=== PATIENT | male | born 1940 | race Caucasian/White ===

== ENCOUNTER 2019-12-09 12:57 | Inpatient (IN) | payer MEDICARE ==
[~2019-12-09] VITALS: Ht 170.2 cm; Wt 113.4 kg
[2019-12-09 14:04] LABS: BASOPHILS % 0.4 % (0.0-1.0); EOSINOPHILS # (AUTO) 0.2 (0.0-0.4); EOSINOPHILS % 2.7 % (0.0-6.0); HEMATOCRIT 35.8 % (38.2-49.6); LYMPHOCYTES # (AUTO) 1.4 (1.0-3.2); MEAN CORPUSCULAR HEMOGLOBIN 32.4 pg (28-32); MEAN CORPUSCULAR HGB CONC 33.5 g/dL (31-35); MEAN CORPUSCULAR VOLUME 96.8 fL (81-99); MONOCYTES # (AUTO) 0.6 (0.2-0.8); MONOCYTES % 7.9 % (4.4-11.3); NEUTROPHILS # (AUTO) 4.8 (2.1-6.9); NEUTROPHILS % 68.7 % (38.7-80.0); PLATELET COUNT 210 x10e3/uL (140-360); RED CELL DISTRIBUTION WIDTH 13.2 % (11.7-14.4)
[2019-12-09 14:12] LABS: COLOR,URINE YELLOW (YELLOW)
[2019-12-09 14:13] LABS: BACTERIA,URINE RARE /HPF; BILIRUBIN,URINE NEGATIVE (NEGATIVE); CLARITY,URINE CLEAR (CLEAR); EPITHELIAL CELLS,URINE FEW /LPF; KETONES,URINE NEGATIVE (NEGATIVE); LEUKOCYTE ESTERASE ,URINE SMALL (NEGATIVE); NITRITE,URINE NEGATIVE (NEGATIVE); PROTEIN,URINE DIPSTICK NEGATIVE (NEGATIVE); RBC,URINE 0-5 /HPF (0-5); URINE UROBILINOGEN 0.2 mg/dL (0.2 - 1); WBC,URINE (MAN) 0-5 /HPF (0-5)
[2019-12-09 14:25] LABS: ALBUMIN 3.1 g/dL (3.5-5.0); ALBUMIN/GLOBULIN RATIO 1.1 (0.8-2.0); ANION GAP 11.7 mmol/L (8-16); CALCIUM 9.4 mg/dL (8.4-10.2); CREATININE, SERUM 2.01 mg/dL (0.72-1.25); POTASSIUM 4.7 mmol/L (3.5-5.1)
--- NOTE | 2019-12-09 15:12 | Diagnostic Imaging Report ---
CT Abdomen and Pelvis without contrast INDICATION: Left lower quadrant pain ^abd pain lq ^[id number] ^[id number] TECHNIQUE: Thin collimation axial images obtained from the diaphragm to the level of the pubic symphysis without nonionic intravenous contrast. Dose reduction techniques used: Automated exposure control, adjustment of the mAs and/or kVp according to patient size, standardized low-dose protocol, and/or iterative reconstruction technique. RADIATION DOSE: Total DLP: 876.6 mGy*cm Estimated effective dose: (DLP x 0.015 x size factor) mSv CTDIvol has been reviewed. It is below the limits set by the Radiation Protocol Committee (RPC). COMPARISON: None. ABDOMEN FINDINGS: Lung Bases: The heart is enlarged. Subpleural fat deposition in the posterior left chest. The lungs are clear. Small hiatal hernia. Liver: Normal in attenuation without mass. Gallbladder: Present and contains dependently layering gallstones measuring up to 10 mm.. No ductal dilatation. Pancreas: Normal attenuation without mass. Spleen: Normal size without mass. Adrenal Glands: Nodular thickening of the right adrenal gland. Diffuse thickening of the left adrenal gland. Kidneys: Right: No renal calculus. Exophytic cyst in the lower pole measures 10 cm. Mass in the anterior interpolar region measures 3.5 x 4.0 cm and does not appear to be a simple cyst. No hydronephrosis Left: No renal calculus. Lower pole cyst measures 3.3 x 2.6 cm. No hydronephrosis. Lymph Nodes: No enlarged abdominal or periaortic lymph nodes. Aorta: Diffusely calcified. No aneurysm dilatation. Common iliac arteries are mildly tortuous PELVIS FINDINGS: Bowel: Stomach: Normal. Small Bowel: Normal in caliber with normal wall thickness. Large Bowel: Normal in caliber with normal wall thickness. Epiploic appendage adjacent to the descending colon measures 2.3 cm. No associated inflammation Appendix: Not visualized. Bladder: Normal. Prostate: Mildly enlarged with calcifications throughout Ureters: No ureteral dilatation or calculus. Peritoneum/retroperitoneum: No free fluid or fluid collection. Bones: Degenerative changes of the spine, particularly the lower thoracic and upper lumbar spine. No compression deformities. Grade 1 retrolisthesis of T12 on L1 without pars defects. Soft tissues: Fat-containing of focal hernia has an aperture of 21 mm. No fluid or inflammation in the hernia sac. 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 IMPRESSION: 1. No evidence of renal calculus or obstructive uropathy. 2. Bilateral renal cysts. Mass in the right kidney does not have the CT appearance of a simple cyst. Recommend further evaluation with renal ultrasound to confirm cystic contents. 3. No evidence for bowel obstruction or inflammation. 4. Cholelithiasis. No bile duct dilatation. 5. Bilateral adrenal hyperplasia. Signed by: Dr. Melvin Nicholson MD on 12/09/2019 3:10 PM
[2019-12-09] MEDS ORDERED: SODIUM CHLORIDE FLUSH 10 ML SYR INJ PRN (17:00)
[2019-12-09] MEDS ORDERED: LACTULOSE SYRUP 20 GM/30 ML UDC PO PRN (17:00)
[2019-12-09] MEDS ORDERED: ONDANSETRON HCL INJ 2MG/ML 2ML 2 MG/ML VIAL IV PRN (17:00)
--- OUTSIDE RECORDS SUMMARY | 2019-12-09 17:06 | XMS REPORT ---
Author Author [facility] Address Unknown Phone Unavailable Care Team Providers Care Bowling Or Skating Front Desk Clerk Name Role Phone Joss DUNCAN Unavailable Unavailable SABRINA FERREIRA Unavailable Unavailable ADITHYA, WILL Unavailable Unavailable SERGE MOORE Unavailable Unavailable Problems This patient has no known problems. Allergies, Adverse Reactions, Alerts This patient has no known allergies or adverse reactions. Medications This patient has no known medications. Results Test Description Test Time Test Comments Text Results Atomic Results Result Comments CT ABDOMEN/PELVIS WO 2019-12-09 15:03:00 [place] [address] Patient Name: TEENA CASAS MR #: [id number] : 1940 Age/Sex: 79/M Req #: [id number] Adm Physician: Ordered by: QIANA DUNCAN MD Report #: [id number] Location: ER Room/Bed: Procedure: [id number] CT/CT ABDOMEN/PELVIS WO Exam Date: 12/09/19 Exam Time: 1420 REPORT STATUS: Signed CT Abdomen and Pelvis without contrast INDICATION: Left lower quadrant pain abd pain lq [id number] TECHNIQUE: Thin collimation axial images obtained from the diaphragm to the level of the pubic symphysis without nonionic intravenous contrast. Dose reduction techniques used: Automated exposure control, adjustment of the mAs and/or kVp according to patient size, standardized low-dose protocol, and/or iterative reconstruction technique. RADIATION DOSE: Total DLP: 876.6 mGy*cm Estimated effective dose: (DLP x 0.015 x size factor) mSv CTDIvol has been reviewed. It is below the limits set by the Radiation Protocol Committee (RPC). COMPARISON: None. ABDOMEN FINDINGS: Lung Bases: The heart is enlarged. Subpleural fat deposition in the posterior left chest. The lungs are clear. Small hiatal hernia. Liver: Normal in attenuation without mass. Gallbladder: Present and contains dependently layering gallstones measuring up to 10 mm.. No ductal dilatation. Pancreas: Normal attenuation without mass. Spleen: Normal size without mass. Adrenal Glands: Nodular thickening of the right adrenal gland. Diffuse thickening of the left adrenal gland. Kidneys: Right: No renal calculus. Exophytic cyst in the lower pole measures 10 cm. Mass in the anterior interpolar region measures 3.5 x 4.0 cm and does not appear to be a simple cyst. No hydronephrosis Left: No renal calculus. Lower pole cyst measures 3.3 x 2.6 cm. No hydronephrosis. Lymph Nodes: No enlarged abdominal or periaortic lymph nodes. Aorta: Diffusely calcified. No aneurysm dilatation. Common iliac arteries are mildly tortuous PELVIS FINDINGS: Bowel: Stomach: Normal. Small Bowel: Normal in caliber with normal wall thickness. Large Bowel: Normal in caliber with normal wall thickness. Epiploic appendage adjacent to the descending colon measures 2.3 cm. No associated inflammation Appendix: Not visualized. Bladder: Normal. Prostate: Mildly enlarged with calcifications throughout Ureters: No ureteral dilatation or calculus. Peritoneum/retroperitoneum: No free fluid or fluid collection. Bones: Degenerative changes of the spine, particularly the lower thoracic and upper lumbar spine. No compression deformities. Grade 1 retrolisthesis of T12 on L1 without pars defects. Soft tissues: Fat-containing of focal hernia has an aperture of 21 mm. No fluid or inflammation in the hernia sac. 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 IMPRESSION: 1. No evidence of renal calculus or obstructive uropathy. 2. Bilateral renal cysts. Mass in the right kidney does not have the CT appearance of a simple cyst. Recommend further evaluation with renal ultrasound to confirm cystic con tents. 3. No evidence for bowel obstruction or inflammation. 4. Cholelithiasis. No bile duct dilatation. 5. Bilateral adrenal hyperplasia. Signed by: Dr. Ozzie Nicholson MD on 12/09/2019 3:10 PM Dictated By: OZZIE NICHOLSON MD 1510 Transcribed By: HARIS on 12/09/19 1510 COPY TO: QIANA DUNCAN MD CT, BRAIN, WITHOUT CONTRAST 2018-12-24 11:22:00 Reason for exam:->FALLReason for exam:->HEAD INJURYReason for exam:->ELBOW INJURYWhat is the patient's sedation requirement?->No Sedation FINAL REPORT CT, BRAIN, WITHOUT CONTRAST INDICATION: Head trauma, headacheFALLHEAD INJURYELBOW INJURY TECHNIQUE: Noncontrast axial imaging was obtained from the vertex to the skull base. Axial images were reconstructed using a bone algorithm. DOSE REDUCTION: Dose modulation, iterative reconstruction, and/or weight-based adjustment of the mA/kV was utilized to reduce the radiation dose to as low as reasonably achievable. COMPARISON: October 19, 2016 FINDINGS: Cerebral parenchyma: Diffuse parenchymal volume loss. Appearance of the white matter suggests chronic microvascular disease.Midline structures: Normally positioned.Cerebellum and brainstem: Commensurate volume loss.Ventricles: Normal volume.Extra-axial spaces: Unremarkable. Calvarium and skull base: Intact.Paranasal sinuses and mastoid air cells: Visible chambers are clear.Orbital contents: Included portions unremarkable. Additional findings: Superficial hematoma over the right parietal convexity posteriorly IMPRESSION: Chronic involutional changes without acute or traumatic intracranial abnormality. Signed: JR [place], [facility] Verified Date/Time: 12/24/2018 11:22:51 Reading Location: [facility] C013V Neuro Reading Room , ELBOW, 3 VIEWS, RIGHT 2018-12-24 11:03:00 Reason for exam:->elbow injuryReason for exam:->HEAD INJURYReason for exam:->ELBOW INJURY FINAL REPORT RAD, ELBOW, 3 VIEWS, RIGHT CLINICAL INDICATION: elbow injuryHEAD INJURYELBOW INJURY COMPARISON: None FINDINGS: AP, lateral and oblique radiographs of the right elbow. IMPRESSION: Fracture: NoneAlignment: Preserved radiocapitellar and ulnotrochlear joints.Derangement: Advanced degenerative changes and joint space narrowing.Soft tissue structures: Unremarkable. Signed: JR Peter Robert MDReport Verified Date/Time: 12/24/2018 11:03:44 Reading Location: [facility] C013V Neuro Reading Room D CULTURE 2018-10-24 07:01:00 CULTURE (BEAKER) (test xdha=4386) No growth in 5 days BLOOD [id number] 07:01:00* Test Item Value Reference Range Comments CULTURE (BEAKER) (test vxvp=3507) No growth in 5 days POCT-GLUCOSE [id number] 09:19:00* Test Item Value Reference Range Comments POC-GLUCOSE METER (BEAKER) (test gsxl=8155) 146 mg/dL 70-110 TESTED AT [address] [address] URINE [id number] 09:11:00* Test Item Value Reference Range Comments CULTURE (BEAKER) (test xplj=7451) <10,000 col/mL skin ken POCT-GLUCOSE [id number] 17:33:00* Test Item Value Reference Range Comments POC-GLUCOSE METER (BEAKER) (test oias=7133) 265 mg/dL 70-110 TESTED AT [address] [address] VENOUS DOPPLER LEGS, [id number] 12:55:00Reason for exam:->EdemaFINAL REPORT History: bilateral lower extremity edema Com parison: None Discussion: Grayscale, color Doppler, spectral wave form analysis of the deep venous system of the bilateral lower extremities was performed. The common femoral, femoral, and popliteal veins are normally compressible and demo nstrate normal spontaneous phasic wave forms.The visualized calf veins are paten t. Impression: No evidence of deep venous thrombus in the bilateral lower extrem ities. Signed: Jerman Hammond MDReport Verified Date/Time: 10/20/2018 12:55:03 Withams ding Location: [facility] Radiology Reading Room -GLUCOSE [id number] 11:16:00* Test Item Value Reference Range Comments POC-GLUCOSE METER (BEAKER) (test rlqx=3552) 206 mg/dL 70-110 TESTED AT [facility] [address] [facility] [address] POCT-GLUCOSE [id number] 07:49:00* Test Item Value Reference Range Comments POC-GLUCOSE METER (BEAKER) (test mydz=7397) 202 mg/dL 70-110 TESTED AT [facility] [address] [facility] [address] BASIC METABOLIC [id number] 06:46:00* Test Item Value Reference Range Comments SODIUM (BEAKER) (test jqxu=237) 134 meq/L 135-148 POTASSIUM (BEAKER) (test afmx=305) 3.8 meq/L 3.6-5.5 CHLORIDE (BEAKER) (test yfdd=514) 96 meq/L 98-106 CO2 (BEAKER) (test gdyd=609) 28 meq/L 20-29 BLOOD UREA NITROGEN (BEAKER) (test rzyf=694) 65 mg/dL 10-26 CREATININE (BEAKER) (test ltkg=830) 1.50 mg/dL 0.50-1.20 GLUCOSE RANDOM (BEAKER) (test hpsn=657) 150 mg/dL 70-110 CALCIUM (BEAKER) (test zast=966) 8.8 mg/dL 8.5-10.5 EGFR (BEAKER) (test tozh=5893) 46 mL/min/1.73 sq m ESTIMATED GFR IS NOT ACCURATE CREATININE CLEARANCE IN PREDICTING GLOMERULAR FILTRATION RATE. ESTIMATED GFR IS NOT APPLICABLE FOR DIALYSIS PATIENTS. CBC W/PLT COUNT & AUTO [id number] 06:19:00* Test Item Value Reference Range Comments WHITE BLOOD CELL COUNT (BEAKER) (test zoba=597) 11.9 K/ L 4.0-10.0 RED BLOOD CELL COUNT (BEAKER) (test syea=443) 3.44 M/ L 4.20-5.80 HEMOGLOBIN (BEAKER) (test wfsm=657) 10.0 GM/DL 13.0-16.8 HEMATOCRIT (BEAKER) (test lkqe=185) 30.6 % 36.0-50.0 MEAN CORPUSCULAR VOLUME (BEAKER) (test htfd=425) 89.0 fL 82.0-99.0 MEAN CORPUSCULAR HEMOGLOBIN (BEAKER) (test ofkd=746) 29.1 pg 27.0-33.0 MEAN CORPUSCULAR HEMOGLOBIN CONC (BEAKER) (test amxi=251) 32.7 GM/DL 32.0-36.0 RED CELL DISTRIBUTION WIDTH (BEAKER) (test uakl=694) 13.4 % 12.0-15.0 PLATELET COUNT (BEAKER) (test qlwl=440) 239 K/CU MM 150-430 MEAN PLATELET VOLUME (BEAKER) (test vyql=138) 10.2 fL 6.0-11.5 NUCLEATED RED BLOOD CELLS (BEAKER) (test xpkj=555) 0 /100 WBC 0-0 NEUTROPHILS RELATIVE PERCENT (BEAKER) (test efnj=362) 87 % LYMPHOCYTES RELATIVE PERCENT (BEAKER) (test nqif=150) 8 % MONOCYTES RELATIVE PERCENT (BEAKER) (test oudz=741) 4 % EOSINOPHILS RELATIVE PERCENT (BEAKER) (test xbsj=816) 0 % BASOPHILS RELATIVE PERCENT (BEAKER) (test ndap=518) 0 % NEUTROPHILS ABSOLUTE COUNT (BEAKER) (test ljbg=209) 10.36 K/ L 1.80-8.00 LYMPHOCYTES ABSOLUTE COUNT (BEAKER) (test czub=670) 1.00 K/ L 1.48-4.50 MONOCYTES ABSOLUTE COUNT (BEAKER) (test xpns=761) 0.45 K/ L 0.00-1.30 EOSINOPHILS ABSOLUTE COUNT (BEAKER) (test fwzj=436) 0.00 K/ L 0.00-0.50 BASOPHILS ABSOLUTE COUNT (BEAKER) (test rccr=294) 0.00 K/ L 0.00-0.20 IMMATURE GRANULOCYTES-RELATIVE PERCENT (BEAKER) (test qgxb=3229) 1 % 0-0 POCT-GLUCOSE [id number] 21:43:00* Test Item Value Reference Range Comments POC-GLUCOSE METER (BEAKER) (test jzpc=8219) 225 mg/dL 70-110 TESTED AT [facility] [address] [place] [address] URINALYSIS W/ [id number] 18:22:00* Test Item Value Reference Range Comments COLOR (BEAKER) (test zpvt=972) Yellow CLARITY (BEAKER) (test lavg=253) Slightly Cloudy SPECIFIC GRAVITY UA (BEAKER) (test futt=598) 1.015 1.001-1.035 PH UA (BEAKER) (test pzkn=848) 5.5 5.0-8.0 PROTEIN UA (BEAKER) (test hvvs=017) Negative Negative GLUCOSE UA (BEAKER) (test pmxf=620) Negative Negative KETONES UA (BEAKER) (test kxfu=124) Negative Negative BILIRUBIN UA (BEAKER) (test efax=008) Negative Negative BLOOD UA (BEAKER) (test sogz=417) Large Negative NITRITE UA (BEAKER) (test chpq=785) Negative Negative LEUKOCYTE ESTERASE UA (BEAKER) (test oknt=601) Moderate Negative UROBILINOGEN UA (BEAKER) (test zdiv=746) 0.2 mg/dL 0.2-1.0 BACTERIA (BEAKER) (test votc=925) Occasional RBC UA-MANUAL (BEAKER) (test dsnf=9691) >100 /HPF WBC UA-MANUAL (BEAKER) (test lyrp=5091) 10-20 /HPF SQUAMOUS EPITHELIAL MANUAL (BEAKER) (test osla=2107) <5 /HPF SOURCE(BEAKER) (test rthm=3975) COMPREHENSIVE METABOLIC [id number] 17:38:00* Test Item Value Reference Range Comments TOTAL PROTEIN (BEAKER) (test gdqd=775) 6.4 gm/dL 6.0-8.5 ALBUMIN (BEAKER) (test domy=9300) 3.2 g/dL 3.5-5.0 ALKALINE PHOSPHATASE (BEAKER) (test hyys=159) 70 U/L 30-115 BILIRUBIN TOTAL (BEAKER) (test liha=792) 0.9 mg/dL 0.1-1.2 SODIUM (BEAKER) (test hiyd=630) 134 meq/L 135-148 POTASSIUM (BEAKER) (test tbbq=752) 4.1 meq/L 3.6-5.5 CHLORIDE (BEAKER) (test grdk=833) 96 meq/L 98-106 CO2 (BEAKER) (test lsxr=970) 26 meq/L 20-29 BLOOD UREA NITROGEN (BEAKER) (test egfc=203) 56 mg/dL 10-26 CREATININE (BEAKER) (test eqsp=046) 1.57 mg/dL 0.50-1.20 GLUCOSE RANDOM (BEAKER) (test ctry=679) 165 mg/dL 70-110 CALCIUM (BEAKER) (test aoxw=460) 9.2 mg/dL 8.5-10.5 AST (SGOT) (BEAKER) (test bkya=417) 17 U/L 5-40 ALT (SGPT) (BEAKER) (test tjia=335) 12 U/L 5-50 EGFR (BEAKER) (test qnpg=4508) 43 mL/min/1.73 sq m ESTIMATED GFR IS NOT ACCURATE CREATININE CLEARANCE IN PREDICTING GLOMERULAR FILTRATION RATE. ESTIMATED GFR IS NOT APPLICABLE FOR DIALYSIS PATIENTS. CBC W/PLT COUNT & AUTO [id number] 17:17:00* Test Item Value Reference Range Comments WHITE BLOOD CELL COUNT (BEAKER) (test ehdz=778) 9.2 K/ L 4.0-10.0 RED BLOOD CELL COUNT (BEAKER) (test lvup=681) 4.03 M/ L 4.20-5.80 HEMOGLOBIN (BEAKER) (test bfyi=165) 11.8 GM/DL 13.0-16.8 HEMATOCRIT (BEAKER) (test qcwz=328) 35.4 % 36.0-50.0 MEAN CORPUSCULAR VOLUME (BEAKER) (test skme=543) 87.8 fL 82.0-99.0 MEAN CORPUSCULAR HEMOGLOBIN (BEAKER) (test xrzn=013) 29.3 pg 27.0-33.0 MEAN CORPUSCULAR HEMOGLOBIN CONC (BEAKER) (test trex=576) 33.3 GM/DL 32.0-36.0 RED CELL DISTRIBUTION WIDTH (BEAKER) (test omjr=209) 13.2 % 12.0-15.0 PLATELET COUNT (BEAKER) (test luyw=191) 228 K/CU MM 150-430 MEAN PLATELET VOLUME (BEAKER) (test jmvx=373) 9.2 fL 6.0-11.5 NUCLEATED RED BLOOD CELLS (BEAKER) (test mbzg=054) 0 /100 WBC 0-0 NEUTROPHILS RELATIVE PERCENT (BEAKER) (test secn=813) 88 % LYMPHOCYTES RELATIVE PERCENT (BEAKER) (test jlod=312) 8 % MONOCYTES RELATIVE PERCENT (BEAKER) (test zkdy=987) 4 % EOSINOPHILS RELATIVE PERCENT (BEAKER) (test vgcy=879) 0 % BASOPHILS RELATIVE PERCENT (BEAKER) (test jkcv=069) 0 % NEUTROPHILS ABSOLUTE COUNT (BEAKER) (test oatu=334) 8.09 K/ L 1.80-8.00 LYMPHOCYTES ABSOLUTE COUNT (BEAKER) (test lztm=420) 0.72 K/ L 1.48-4.50 MONOCYTES ABSOLUTE COUNT (BEAKER) (test wsmf=719) 0.37 K/ L 0.00-1.30 EOSINOPHILS ABSOLUTE COUNT (BEAKER) (test aewg=894) 0.00 K/ L 0.00-0.50 BASOPHILS ABSOLUTE COUNT (BEAKER) (test fbod=435) 0.00 K/ L 0.00-0.20 IMMATURE GRANULOCYTES-RELATIVE PERCENT (BEAKER) (test wbhc=8326) 0 % 0-0 CT, [id number] 04:55:00Reason for exam:->abd painWhat is the patient's sedation requirement?->No SedationFINAL REPORT CT, ABDOMEN \T\ PELVIS, WITHOUT IV CONTRAST INDICATION: Abdominal pain, unspecifiedabd pain COMPARISON: CT abdomen and pelvis dated 09/27/2018. TECHNIQUE:Noncontrast abdomen and pelvis CT. Coronal and sagittal reformatted images obtained. DOSE REDUCTION: Dose modulation, iterative reconstruction, and/or weight-based adjustment of the mA/kV was utilized to reduce the radiation dose to as low as reasonably achievable. FINDINGS: Lower thorax: Visible airspaces clear. No pleural effusion. The heart is globally enlarged. No pericardial effusion. Liver: Lack of intravenous contrast material limits connie luation for suspicious hepatic lesions however no discrete lesions are identifie d.Gallbladder and biliary tree: Cholelithiasis. The gallbladder is not distended . No pericholecystic fluid or abnormal gallbladder wall thickening. No intra or extrahepatic biliary ductal dilatation.Pancreas: No acute findings.Spleen: Splee n measures the upper limits of normal.Adrenal Glands: NormalKidneys and ureters: Multiple right exophytic simple cysts the largest of which is in the lower pole measuring 8.5 cm . Subcentimeter left renal hypodensities are too small to daniel acterize however statistically represents simple renal cysts. No nephrolithiasis or hydronephrosis.Bladder and reproductive organs: The bladder is unremarkable. Coarse calcifications within the prostate gland. Stomach and Duodenum: No signi ficant findings.Small and large intestine: Small and large bowel are normal in c aliber. No abnormal bowel wall thickening.Appendix: Normal. Major vascular struc tures: Atherosclerotic calcifications in the normal caliber abdominal aorta.Krystin toneum and retroperitoneum: No free air, fluid or adenopathy. Unchanged simple f at-containing nodular densities around the sigmoid colon, likely sequela of prio r epiploic appendagitis.Skeleton: Multilevel degenerative changes within the vis ualized thoracic lumbar spine, worst at T10-11 and L1-L2, unchanged.Additional f indings: Fat-containing umbilical hernia. IMPRESSION: No acute abnormality in t he abdomen or pelvis. Specifically no evidence diverticulitis, appendicitis or n ephrolithiasis. Cholelithiasis without evidence of acute cholecystitis. Signed: Kamlesh Singh Verified Date/Time: 10/19/2018 04:55:47 Reading Lo cation: [address] Transitional Reading Room , CHEST, 1 VIEW, NON DEPT 2018-10-19 02:55:00Reason for exam:->FEVER Reason for exam:->LEG PAINFINAL REPORT Chest, 1 view. History: Fever and leg pain. Comparison: Radiograph Chest dated 09/27/2018.. IMPRESSION: Unchanged borderli ne enlarged cardiac mediastinal silhouette. Unchanged bandlike opacities in the right perihilar and lower lung favored to represent prominent pulmonary vasculat ure and atelectasis. No lobar consolidation. No pleural effusion or pneumothorax . Degenerative changes of the right glenohumeral joint. Otherwise osseous struct ures are unremarkable. Signed: Kamlesh Singh Verified Date/Time: 10/19/2018 02:55:20 Reading Location: [address] Transitional Reading Room E lectronically signed by: KAMLESH SINGH MD on 10/19/2018 02:55 AM B- TYPE NATRIURETIC FACTOR (BNP)2018-10-19 02:50:00* Test Item Value Reference Range Comments B-TYPE NATRIURETIC PEPTIDE (BEAKER) (test esel=161) 108 pg/mL 0-100 TROPONIN [id number] 02:49:00* Test Item Value Reference Range Comments TROPONIN I (BEAKER) (test nqlk=888) 0.03 ng/mL 0.00-0.15 Troponin I (TnI) levels must be interpreted in the context of the presenting sym ptoms and the clinical findings. Elevated TnI levels indicate myocardial damage, but are not specific for ischemic heart disease. Elevated TnI levels are seen in patients with other cardiac conditions (including myocarditis and congestive h eart failure), and slight TnI elevations occur in patients with other conditions , including sepsis, renal failure, acidosis, acute neurological disease, and per sistent tachyarrhythmia.URIC [id number] 02:45:00* Test Item Value Reference Range Comments URIC ACID (BEAKER) (test zwkt=771) 10.3 mg/dL 2.5-8.0 BASIC METABOLIC [id number] 02:45:00* Test Item Value Reference Range Comments SODIUM (BEAKER) (test hcoo=363) 135 meq/L 135-148 POTASSIUM (BEAKER) (test ogmh=181) 3.9 meq/L 3.6-5.5 CHLORIDE (BEAKER) (test jhbj=377) 94 meq/L 98-106 CO2 (BEAKER) (test rgcq=161) 29 meq/L 20-29 BLOOD UREA NITROGEN (BEAKER) (test zrbh=516) 44 mg/dL 10-26 CREATININE (BEAKER) (test rjnz=627) 1.42 mg/dL 0.50-1.20 GLUCOSE RANDOM (BEAKER) (test uztv=354) 134 mg/dL 70-110 CALCIUM (BEAKER) (test ogsu=658) 9.2 mg/dL 8.5-10.5 EGFR (BEAKER) (test eksp=1119) 48 mL/min/1.73 sq m ESTIMATED GFR IS NOT ACCURATE CREATININE CLEARANCE IN PREDICTING GLOMERULAR FILTRATION RATE. ESTIMATED GFR IS NOT APPLICABLE FOR DIALYSIS PATIENTS. LACTIC ACID, VENOUS, WHOLE [id number] 02:29:00* Test Item Value Reference Range Comments LACTATE BLOOD VENOUS (2) (BEAKER) (test utbp=5564) 1.1 mmol/L 0.5-2.0 Specimen slightly hemolyzed KETONE, [id number] 02:23:00* Test Item Value Reference Range Comments KETONES, BLOOD (BEAKER) (test rkom=3692) 0.4 mmol/L <0.4 CBC W/PLT COUNT & AUTO [id number] 02:14:00* Test Item Value Reference Range Comments WHITE BLOOD CELL COUNT (BEAKER) (test cedb=622) 11.3 K/ L 4.0-10.0 RED BLOOD CELL COUNT (BEAKER) (test dooc=417) 3.85 M/ L 4.20-5.80 HEMOGLOBIN (BEAKER) (test vjau=299) 11.3 GM/DL 13.0-16.8 HEMATOCRIT (BEAKER) (test kstg=654) 34.5 % 36.0-50.0 MEAN CORPUSCULAR VOLUME (BEAKER) (test tjym=466) 89.6 fL 82.0-99.0 MEAN CORPUSCULAR HEMOGLOBIN (BEAKER) (test chod=197) 29.4 pg 27.0-33.0 MEAN CORPUSCULAR HEMOGLOBIN CONC (BEAKER) (test tess=076) 32.8 GM/DL 32.0-36.0 RED CELL DISTRIBUTION WIDTH (BEAKER) (test mzib=610) 13.4 % 12.0-15.0 PLATELET COUNT (BEAKER) (test vnbw=476) 251 K/CU MM 150-430 MEAN PLATELET VOLUME (BEAKER) (test nfux=375) 10.0 fL 6.0-11.5 NUCLEATED RED BLOOD CELLS (BEAKER) (test gmqo=274) 0 /100 WBC 0-0 NEUTROPHILS RELATIVE PERCENT (BEAKER) (test ksde=125) 76 % LYMPHOCYTES RELATIVE PERCENT (BEAKER) (test ohgi=722) 13 % MONOCYTES RELATIVE PERCENT (BEAKER) (test btpg=800) 10 % EOSINOPHILS RELATIVE PERCENT (BEAKER) (test aprl=462) 0 % BASOPHILS RELATIVE PERCENT (BEAKER) (test yhwe=734) 0 % NEUTROPHILS ABSOLUTE COUNT (BEAKER) (test jfoq=412) 8.57 K/ L 1.80-8.00 LYMPHOCYTES ABSOLUTE COUNT (BEAKER) (test lagd=873) 1.44 K/ L 1.48-4.50 MONOCYTES ABSOLUTE COUNT (BEAKER) (test aydo=753) 1.15 K/ L 0.00-1.30 EOSINOPHILS ABSOLUTE COUNT (BEAKER) (test qmht=789) 0.03 K/ L 0.00-0.50 BASOPHILS ABSOLUTE COUNT (BEAKER) (test drnk=399) 0.02 K/ L 0.00-0.20 IMMATURE GRANULOCYTES-RELATIVE PERCENT (BEAKER) (test szem=5744) 0 % 0-0 BLOOD [id number] 22:00:00* Test Item Value Reference Range Comments CULTURE (BEAKER) (test rwlc=3863) No growth in 5 days BLOOD [id number] 19:00:00* Test Item Value Reference Range Comments CULTURE (BEAKER) (test sxyh=8465) No growth in 5 days BASIC METABOLIC [id number] 06:59:00* Test Item Value Reference Range Comments SODIUM (BEAKER) (test qfkj=019) 135 meq/L 135-148 POTASSIUM (BEAKER) (test esos=389) 3.2 meq/L 3.6-5.5 CHLORIDE (BEAKER) (test zpnn=088) 100 meq/L 98-106 CO2 (BEAKER) (test ehzl=261) 27 meq/L 20-29 BLOOD UREA NITROGEN (BEAKER) (test czxz=048) 50 mg/dL 10-26 CREATININE (BEAKER) (test cliv=722) 1.63 mg/dL 0.50-1.20 GLUCOSE RANDOM (BEAKER) (test gqdv=311) 116 mg/dL 70-110 CALCIUM (BEAKER) (test kjxs=646) 8.8 mg/dL 8.5-10.5 EGFR (BEAKER) (test jlhk=9739) 41 mL/min/1.73 sq m ESTIMATED GFR IS NOT ACCURATE CREATININE CLEARANCE IN PREDICTING GLOMERULAR FILTRATION RATE. ESTIMATED GFR IS NOT APPLICABLE FOR DIALYSIS PATIENTS. CBC W/PLT COUNT & AUTO [id number] 06:42:00* Test Item Value Reference Range Comments WHITE BLOOD CELL COUNT (BEAKER) (test beep=610) 9.8 K/ L 4.0-10.0 RED BLOOD CELL COUNT (BEAKER) (test exit=978) 3.69 M/ L 4.20-5.80 HEMOGLOBIN (BEAKER) (test zrgn=758) 11.0 GM/DL 13.0-16.8 HEMATOCRIT (BEAKER) (test waqx=167) 33.4 % 36.0-50.0 MEAN CORPUSCULAR VOLUME (BEAKER) (test lmst=397) 90.5 fL 82.0-99.0 MEAN CORPUSCULAR HEMOGLOBIN (BEAKER) (test ijih=278) 29.8 pg 27.0-33.0 MEAN CORPUSCULAR HEMOGLOBIN CONC (BEAKER) (test apgg=304) 32.9 GM/DL 32.0-36.0 RED CELL DISTRIBUTION WIDTH (BEAKER) (test wvzx=879) 13.8 % 12.0-15.0 PLATELET COUNT (BEAKER) (test mhzj=143) 219 K/CU MM 150-430 MEAN PLATELET VOLUME (BEAKER) (test azsa=621) 9.7 fL 6.0-11.5 NUCLEATED RED BLOOD CELLS (BEAKER) (test byds=114) 0 /100 WBC 0-0 NEUTROPHILS RELATIVE PERCENT (BEAKER) (test ckrv=395) 80 % LYMPHOCYTES RELATIVE PERCENT (BEAKER) (test amzl=464) 10 % MONOCYTES RELATIVE PERCENT (BEAKER) (test kvfq=223) 9 % EOSINOPHILS RELATIVE PERCENT (BEAKER) (test mssj=862) 0 % BASOPHILS RELATIVE PERCENT (BEAKER) (test upis=633) 0 % NEUTROPHILS ABSOLUTE COUNT (BEAKER) (test tmen=829) 7.78 K/ L 1.80-8.00 LYMPHOCYTES ABSOLUTE COUNT (BEAKER) (test yebq=492) 0.98 K/ L 1.48-4.50 MONOCYTES ABSOLUTE COUNT (BEAKER) (test rqum=981) 0.92 K/ L 0.00-1.30 EOSINOPHILS ABSOLUTE COUNT (BEAKER) (test gefg=260) 0.03 K/ L 0.00-0.50 BASOPHILS ABSOLUTE COUNT (BEAKER) (test lged=216) 0.02 K/ L 0.00-0.20 IMMATURE GRANULOCYTES-RELATIVE PERCENT (BEAKER) (test vqiz=0336) 0 % 0-0 POCT-GLUCOSE [id number] 06:27:00* Test Item Value Reference Range Comments POC-GLUCOSE METER (BEAKER) (test hsco=3792) 132 mg/dL 70-110 TESTED AT [address] [address] POCT-GLUCOSE [id number] 20:36:00* Test Item Value Reference Range Comments POC-GLUCOSE METER (BEAKER) (test orjx=2692) 160 mg/dL 70-110 TESTED AT [address] [address] POCT-GLUCOSE [id number] 16:53:00* Test Item Value Reference Range Comments POC-GLUCOSE METER (BEAKER) (test wgev=6011) 119 mg/dL 70-110 TESTED AT [address] [address] POCT-GLUCOSE [id number] 12:22:00* Test Item Value Reference Range Comments POC-GLUCOSE METER (BEAKER) (test fawq=0596) 160 mg/dL 70-110 TESTED AT [address] [address] POCT-GLUCOSE [id number] 06:05:00* Test Item Value Reference Range Comments POC-GLUCOSE METER (BEAKER) (test qgzb=4446) 156 mg/dL 70-110 TESTED AT [address] [address] BASIC METABOLIC [id number] 05:03:00* Test Item Value Reference Range Comments SODIUM (BEAKER) (test pbtp=633) 138 meq/L 135-148 POTASSIUM (BEAKER) (test ahve=990) 3.0 meq/L 3.6-5.5 CHLORIDE (BEAKER) (test tkti=733) 98 meq/L 98-106 CO2 (BEAKER) (test cdcs=086) 29 meq/L 20-29 BLOOD UREA NITROGEN (BEAKER) (test mmis=268) 37 mg/dL 10-26 CREATININE (BEAKER) (test itox=585) 1.63 mg/dL 0.50-1.20 GLUCOSE RANDOM (BEAKER) (test skax=455) 144 mg/dL 70-110 CALCIUM (BEAKER) (test zxyb=373) 8.9 mg/dL 8.5-10.5 EGFR (BEAKER) (test wcxz=0547) 41 mL/min/1.73 sq m ESTIMATED GFR IS NOT ACCURATE CREATININE CLEARANCE IN PREDICTING GLOMERULAR FILTRATION RATE. ESTIMATED GFR IS NOT APPLICABLE FOR DIALYSIS PATIENTS. CBC W/PLT COUNT & AUTO [id number] 04:56:00* Test Item Value Reference Range Comments WHITE BLOOD CELL COUNT (BEAKER) (test jeqy=646) 14.2 K/ L 4.0-10.0 RED BLOOD CELL COUNT (BEAKER) (test mxpa=914) 3.65 M/ L 4.20-5.80 HEMOGLOBIN (BEAKER) (test srgk=900) 10.7 GM/DL 13.0-16.8 HEMATOCRIT (BEAKER) (test crhq=826) 33.1 % 36.0-50.0 MEAN CORPUSCULAR VOLUME (BEAKER) (test kpma=294) 90.7 fL 82.0-99.0 MEAN CORPUSCULAR HEMOGLOBIN (BEAKER) (test anad=019) 29.3 pg 27.0-33.0 MEAN CORPUSCULAR HEMOGLOBIN CONC (BEAKER) (test yzqt=748) 32.3 GM/DL 32.0-36.0 RED CELL DISTRIBUTION WIDTH (BEAKER) (test nxwy=762) 13.7 % 12.0-15.0 PLATELET COUNT (BEAKER) (test wpnp=545) 201 K/CU MM 150-430 MEAN PLATELET VOLUME (BEAKER) (test kygt=354) 9.7 fL 6.0-11.5 NUCLEATED RED BLOOD CELLS (BEAKER) (test kxcs=375) 0 /100 WBC 0-0 NEUTROPHILS RELATIVE PERCENT (BEAKER) (test mrlc=113) 85 % LYMPHOCYTES RELATIVE PERCENT (BEAKER) (test vhwj=858) 6 % MONOCYTES RELATIVE PERCENT (BEAKER) (test kank=916) 8 % EOSINOPHILS RELATIVE PERCENT (BEAKER) (test psyx=006) 0 % BASOPHILS RELATIVE PERCENT (BEAKER) (test oxsw=935) 0 % NEUTROPHILS ABSOLUTE COUNT (BEAKER) (test zhum=821) 12.04 K/ L 1.80-8.00 LYMPHOCYTES ABSOLUTE COUNT (BEAKER) (test zykt=515) 0.86 K/ L 1.48-4.50 MONOCYTES ABSOLUTE COUNT (BEAKER) (test dmwe=780) 1.16 K/ L 0.00-1.30 EOSINOPHILS ABSOLUTE COUNT (BEAKER) (test mztp=992) 0.00 K/ L 0.00-0.50 BASOPHILS ABSOLUTE COUNT (BEAKER) (test onbn=999) 0.02 K/ L 0.00-0.20 IMMATURE GRANULOCYTES-RELATIVE PERCENT (BEAKER) (test yksk=9149) 1 % 0-0 LACTIC ACID, VENOUS, WHOLE [id number] 04:45:00* Test Item Value Reference Range Comments LACTATE BLOOD VENOUS (2) (BEAKER) (test qbpw=4232) 0.8 mmol/L 0.5-2.0 LACTIC ACID, VENOUS, WHOLE [id number] 01:03:00* Test Item Value Reference Range Comments LACTATE BLOOD VENOUS (2) (BEAKER) (test aoae=6683) 0.9 mmol/L 0.5-2.0 LACTIC ACID, VENOUS, WHOLE [id number] 22:08:00* Test Item Value Reference Range Comments LACTATE BLOOD VENOUS (2) (BEAKER) (test nfud=9228) 2.0 mmol/L 0.5-2.0 CT, [id number] 20:05:00Reason for exam:->Abdominal painWhat is the patient's sedation requirement?->No SedationFINAL REPORT CT scan of the abdomen and pelvis: CLINICAL HISTORY: Abdominal pain, fever Comparison exam: None TECHNIQUE: CT scan of the abdomen and pelvis without intravenous or oral contrast. Dose modulation, iterative reconstruction, and/or weight based adjustment of the mA/kV was utilized to reduce the radiation dose to as low as reasonably achievable. FINDINGS: Lack of contrast limits evaluation of the bowel, abdominal and pelvic solid organs, and vasculature. Normal lung bases. Normal heart. Diffuse fatty infiltration of the liver. Normal spleen and pancreas. Cholelithiasis. Small hiatus hernia. Redundant colon. No acute bowel abnormalities. Appendix not identified. No free intraperitoneal air. No mesenteric or retroperitoneal lymphadenopathy. Normal caliber aorta with moderate calcified atherosclerotic plaque. Normal adrenal glands. Bilateral renal cysts with the largest cyst arising from the lower pole of the right k idney measuring 8.5 cm. Normal seminal vesicles. Extensive dystrophic prostate c alcifications. Normal bladder. No acute skeletal abnormalities. Small fat-contai maxx umbilical hernia. IMPRESSION: 1. Cholelithiasis. 2. Diffuse fatty infiltrat ion of the liver. 3. Bilateral renal cysts with the largest cyst arising from th e lower pole of the right kidney measuring 8.5 cm. 4. Small fat-containing umbil ical hernia. Signed: Rodrigo Lowe Verified Date/Time: 09/27/2018 20:05 :27 Reading Location: [address] Reading Room Electronically s igned by: RODRIGO LOWE M.D. on 09/27/2018 08:05 PM URINALYSIS W/ REFLEX URINE [id number] 19:55:00* Test Item Value Reference Range Comments COLOR (BEAKER) (test wqsd=554) Yellow CLARITY (BEAKER) (test ajmg=015) Cloudy SPECIFIC GRAVITY UA (BEAKER) (test odih=860) 1.015 1.001-1.035 PH UA (BEAKER) (test lhsu=326) 5.5 5.0-8.0 PROTEIN UA (BEAKER) (test wfgl=007) Trace Negative GLUCOSE UA (BEAKER) (test oxtr=175) Negative Negative KETONES UA (BEAKER) (test lult=867) Negative Negative BILIRUBIN UA (BEAKER) (test olxu=491) Negative Negative BLOOD UA (BEAKER) (test ybai=543) Large Negative NITRITE UA (BEAKER) (test qhxy=288) Negative Negative LEUKOCYTE ESTERASE UA (BEAKER) (test lakf=435) Moderate Negative UROBILINOGEN UA (BEAKER) (test fvoj=448) 0.2 mg/dL 0.2-1.0 BACTERIA (BEAKER) (test zrqi=979) Occasional RBC UA-MANUAL (BEAKER) (test bvdh=4854) >100 /HPF WBC UA-MANUAL (BEAKER) (test bzkc=8634) 20-50 /HPF SQUAMOUS EPITHELIAL MANUAL (BEAKER) (test myyu=3331) 5-10 /HPF SOURCE(BEAKER) (test fwtd=5542) VENOUS DOPPLER LEG, [id number] 19:41:00Reason for exam:->EXTREMITY WEAKNESSReason for exam:->KNEE PAINReason for exam:->LEG SWELLINGFINAL REPORT The right lower extremity deep venous system was evaluated utilizing grayscale, color Doppler, and spectral Doppler ultrasound. Normal patency of the deep venous system. No intraluminal thrombus. Normal blood flow and compressibility. Impression: Normal venous Doppler examination of the right lower extremity. Specifically, no deep venous thrombosis. Signed: Rodrigo Lowe Verified Date/Time: 09/27/2018 19:41:27 Reading Location: [address] Reading Room C METABOLIC [id number] 18:16:00* Test Item Value Reference Range Comments SODIUM (BEAKER) (test uqrk=695) 137 meq/L 135-148 POTASSIUM (BEAKER) (test wkzo=553) 3.3 meq/L 3.6-5.5 CHLORIDE (BEAKER) (test mivm=429) 95 meq/L 98-106 CO2 (BEAKER) (test zcjq=596) 30 meq/L 20-29 BLOOD UREA NITROGEN (BEAKER) (test ltwp=035) 33 mg/dL 10-26 CREATININE (BEAKER) (test bybw=701) 1.50 mg/dL 0.50-1.20 GLUCOSE RANDOM (BEAKER) (test ktly=319) 141 mg/dL 70-110 CALCIUM (BEAKER) (test jnlt=961) 8.9 mg/dL 8.5-10.5 EGFR (BEAKER) (test rogd=6705) 46 mL/min/1.73 sq m ESTIMATED GFR IS NOT ACCURATE CREATININE CLEARANCE IN PREDICTING GLOMERULAR FILTRATION RATE. ESTIMATED GFR IS NOT APPLICABLE FOR DIALYSIS PATIENTS. RAD, KNEE, COMPLETE (4 VIEWS), [id number] 17:59:00Reason for exam:-> EXTREMITY WEAKNESSReason for exam:->KNEE PAINReason for exam:->LEG SWELLINGShould this be performed at the bedside?->YesFINAL REPORT COMPARISON: None TECHNIQUE: Multiple views of the right knee. FINDINGS: There are no acute fractures or dislocations. No radiopaque foreign bodies. There are moderate to severe degenerative changes. There is osteopenia. There is nonspecific surrounding soft tissue edema. Suprapatellar joint effusion noted. IMPRESSION: No acute bony abnormality. Signed: Jerman Hammond MDReport Verified Date/Time: 09/27/2018 17:59:00 Reading Location: [facility] Reading Room ONIN [id number] 17:57:00* Test Item Value Reference Range Comments TROPONIN I (BEAKER) (test hhwa=707) 0.03 ng/mL 0.00-0.15 Troponin I (TnI) levels must be interpreted in the context of the presenting sym ptoms and the clinical findings. Elevated TnI levels indicate myocardial damage, but are not specific for ischemic heart disease. Elevated TnI levels are seen in patients with other cardiac conditions (including myocarditis and congestive h eart failure), and slight TnI elevations occur in patients with other conditions , including sepsis, renal failure, acidosis, acute neurological disease, and per sistent tachyarrhythmia.RAD, CHEST, 1 VIEW, NON [id number] 17:55:00Reason for exam:->EXTREMITY WEAKNESSReason for exam:->KNEE PAINReason for exam:->LEG SWELLINGShould this be performed at the bedside?->YesFINAL REPORT TECHNIQUE: Single view of the chest. COMPARISON: 10/18/2016 FINDINGS: The cardiac silhouette is prominent. Thoracic aorta is ectatic. There is a focal opacity measuring 1.8 x 1.0 cm and the left upper lobe. Otherwise lungs are clear. No acute skeletal abnormality. Soft tissues appear unremarkable. IMPRESSION: Focal left upper lobe opacity may be artifact related to the overlying catheter, focal pneumonitis or lung nodule are possible. This could be reassessed with repeat chest x-ray after removing the catheter. Signed: Jerman Hammond MDReport Verified Date/Time: 09/27/2018 17:55:59 [facility] TIC FUNCTION [id number] 17:51:00* Test Item Value Reference Range Comments TOTAL PROTEIN (BEAKER) (test ctce=251) 6.2 gm/dL 6.0-8.5 ALBUMIN (BEAKER) (test bisa=3957) 3.4 g/dL 3.5-5.0 BILIRUBIN TOTAL (BEAKER) (test lmsd=895) 1.4 mg/dL 0.1-1.2 BILIRUBIN DIRECT (BEAKER) (test aigg=823) 0.6 mg/dL 0.0-0.4 ALKALINE PHOSPHATASE (BEAKER) (test vhoq=443) 83 U/L 30-115 AST (SGOT) (BEAKER) (test ahwb=466) 18 U/L 5-40 ALT (SGPT) (BEAKER) (test coin=991) 17 U/L 5-50 [id number] 17:49:00* Test Item Value Reference Range Comments PHOSPHORUS (BEAKER) (test rtsb=575) 3.0 mg/dL 2.5-4.5 PROTHROMBIN TIME/[id number] 17:49:00* Test Item Value Reference Range Comments PROTIME (BEAKER) (test yqrz=318) 14.1 sec 9.3-12.0 INR (BEAKER) (test roso=284) 1.3 <=5.9 RECOMMENDED COUMADIN/WARFARIN INR THERAPY RANGESSTANDARD DOSE: 2.0 - 3.0 Inclu marilyn: PROPHYLAXIS for venous thrombosis, systemic embolization; TREATMENT for ruben ous thrombosis and/or pulmonary embolus.HIGH RISK: Target INR is 2.5-3.5 for pat ients with mechanical heart valves.Final Information (Auto Output)Final Informat ion (Auto Output)[id number] 17:49:00* Test Item Value Reference Range Comments PARTIAL THROMBOPLASTIN TIME (BEAKER) (test qkrq=458) 31.0 sec 23.0-35.0 Final Information (Auto Output)[id number] 17:43:00* Test Item Value Reference Range Comments MAGNESIUM (BEAKER) (test eutg=977) 1.8 mg/dL 1.5-3.0 CBC W/PLT COUNT & AUTO [id number] 17:37:00* Test Item Value Reference Range Comments WHITE BLOOD CELL COUNT (BEAKER) (test tebc=783) 11.1 K/ L 4.0-10.0 RED BLOOD CELL COUNT (BEAKER) (test tnvj=054) 3.94 M/ L 4.20-5.80 HEMOGLOBIN (BEAKER) (test btpv=828) 11.8 GM/DL 13.0-16.8 HEMATOCRIT (BEAKER) (test epnw=201) 36.0 % 36.0-50.0 MEAN CORPUSCULAR VOLUME (BEAKER) (test zxyr=500) 91.4 fL 82.0-99.0 MEAN CORPUSCULAR HEMOGLOBIN (BEAKER) (test nmni=136) 29.9 pg 27.0-33.0 MEAN CORPUSCULAR HEMOGLOBIN CONC (BEAKER) (test geab=466) 32.8 GM/DL 32.0-36.0 RED CELL DISTRIBUTION WIDTH (BEAKER) (test mwrb=346) 13.4 % 12.0-15.0 PLATELET COUNT (BEAKER) (test tbcw=386) 229 K/CU MM 150-430 MEAN PLATELET VOLUME (BEAKER) (test hpyp=752) 9.8 fL 6.0-11.5 NUCLEATED RED BLOOD CELLS (BEAKER) (test zdzk=845) 0 /100 WBC 0-0 NEUTROPHILS RELATIVE PERCENT (BEAKER) (test pmde=633) 79 % LYMPHOCYTES RELATIVE PERCENT (BEAKER) (test mlix=857) 10 % MONOCYTES RELATIVE PERCENT (BEAKER) (test iqos=570) 10 % EOSINOPHILS RELATIVE PERCENT (BEAKER) (test lrzg=704) 0 % BASOPHILS RELATIVE PERCENT (BEAKER) (test zpjl=739) 0 % NEUTROPHILS ABSOLUTE COUNT (BEAKER) (test gplb=060) 8.75 K/ L 1.80-8.00 LYMPHOCYTES ABSOLUTE COUNT (BEAKER) (test lxvy=760) 1.11 K/ L 1.48-4.50 MONOCYTES ABSOLUTE COUNT (BEAKER) (test umvy=469) 1.14 K/ L 0.00-1.30 EOSINOPHILS ABSOLUTE COUNT (BEAKER) (test urrk=126) 0.00 K/ L 0.00-0.50 BASOPHILS ABSOLUTE COUNT (BEAKER) (test ochm=536) 0.02 K/ L 0.00-0.20 IMMATURE GRANULOCYTES-RELATIVE PERCENT (BEAKER) (test muwh=5227) 0 % 0-0
[2019-12-09] MEDS: DOCUSATE SODIUM 100 MG CAP PO SCH (17:29)
[2019-12-09] MEDS ORDERED: VITAMIN D34000 UNIT PO (18:54)
[2019-12-09] MEDS ORDERED: TART CHERRY CA1 EACH PO (18:54)
[2019-12-09] MEDS ORDERED: SPIRONOLACTONE25 MG PO (18:54)
[2019-12-09] MEDS ORDERED: METFORMIN HCL500 M2 PO (18:54)
[2019-12-09] MEDS ORDERED: COREG3.125 MG PO (18:54)
[2019-12-09] MEDS ORDERED: FUROSEMIDE40 MG PO (18:54)
[2019-12-09] MEDS ORDERED: FLOMAX0.4 MG PO (18:54)
[2019-12-09] MEDS ORDERED: COENZYME Q1010 MG PO (18:54)
[2019-12-09] MEDS ORDERED: CINNAMON500 MG PO (18:54)
[2019-12-09] MEDS ORDERED: VITAMIN C1000 MG PO (18:54)
[2019-12-09] MEDS ORDERED: ALLOPURINOL100 MG PO (18:54)
[2019-12-09] MEDS ORDERED: TYLENOL325 MG PO (18:54)
[2019-12-09] MEDS ORDERED: LEVALBUTER0.63 MG/3 NEB (18:54)
--- NOTE | 2019-12-09 19:05 | NUR ---
Bedside shift report completed with morning nurse. Pt alert to name, lying in bed HOB 45. Denies pain at this time. Family at bedside. Call light within reach. Will continue to monitor,
[2019-12-09] MEDS ORDERED: LEVALBUTEROL HCL SOLN NEBU 0.63 MG/3 ML NEB HHN PRN (19:15)
[2019-12-09 20:00] VITALS: BP 145/69
[2019-12-09 20:10] VITALS: BP 145/69
--- NOTE | 2019-12-09 20:10 | NUR ---
Pt admitted to room 292 via stretcher from home with his . Pt alert to name, hospital, and diagnosis: constipation, abdominal pain, renal insufficiency, and weakness. Pt has some decreased memory and awareness. Pt/ able to give health history. Pt came to hospital no BM since 11/27 and not able to stand or walk due to weakness. Administered saline enema x1 tolerated, Pt well. Pt c/o 03/20 pain in right knee, hx gout. Lungs CTA. wants assistance with home health after SNF eval. Pt/ oriented to room, bed low and locked, call light within reach. Will continue to monitor.
[2019-12-09] MEDS: TAMSULOSIN HCL 0.4 MG CAP PO SCH (21:00)
[2019-12-10] VITALS (8 sets, daily range): BP systolic 117–141; BP diastolic 55–67
[2019-12-10] MEDS: ACETAMINOPHEN 325 MG TAB PO SCH ×4 (00:05→16:59)
[2019-12-10] MEDS ORDERED: HYDRALAZINE HCL 20 MG/ML VIAL IV PRN (01:30)
[2019-12-10] MEDS ORDERED: MAGNESIUM HYDROXIDE 30 ML UDC PO PRN (01:30)
[2019-12-10] MEDS ORDERED: DEXTROSE 50% SYRINGE 50 ML IV PRN (01:30)
--- NOTE | 2019-12-10 06:42 | History and Physical ---
PRIMARY CARE DO[facility] HISTORY OF PRESENT ILLNESS: Mr. Loomis is a pleasant 79-year-old gentleman with failure to perform ADLs. The patient presented with abdominal pain. It was described as pain. It was also cramping. The patient has not had any bowel movements for 12 days. The patient furthermore has become weaker for the last 2 months, although there is a 100-pound weight loss over the last couple of years and gradual weakness noted over the last year, has been mild. The patient states he had already seen a neurologist, who did EMG and nerve conduction velocities and diagnosed him with neuropathy with family upon asking and assumed it diabetes related. The patient despite the weight loss is now 250 pounds, too big for the way to turn in bed. He has no strength to mobilize. He comes to emergency room and is admitted. PAST MEDICAL HISTORY: Hypertension; diabetes; heart disease; gout; he was informed he has COPD by a founder & ceo he says; ROSALBA, off CPAP since the hospitalization a few years ago. MEDICATIONS: Medication list reviewed per the chart record. ALLERGIES: LEVOFLOXACIN, LISINOPRIL. SOCIAL HISTORY: The patient smoked for 15 years, 1 pack a day in his youth. No alcohol. No drugs. He is an aviation electrical technician, but retired. FAMILY HISTORY: Noncontributory. REVIEW OF SYSTEMS: GENERAL: No polydipsia. HEENT: No mouth ulcers. Ophthalmologic, no floaters. ENDOCRINE: No known thyroid disease. PULMONARY: No asthma. CARDIAC: No heart attack. : No blood in urine. GI: No diarrhea. INTEGUMENT: No rash. NEUROLOGIC: No seizures. MUSCULOSKELETAL: Mild arthritis. OBJECTIVE: VITAL SIGNS: Afebrile, vital signs noted and reviewed per the chart record. GENERAL: In no acute distress, alert and calm. HEENT: Normocephalic and atraumatic. NECK: Supple. Throat midline. LUNGS: Bilateral air entry clear. CARDIOVASCULAR: S1 and S2. No murmurs, rubs, or gallops. ABDOMEN: Soft, not tight, not surgical. EXTREMITIES: No clubbing. No cyanosis. There is 1+ edema to the legs. INTEGUMENT: No rash. No purpura. LABORATORY DATA: White count 7, hematocrit 36, platelets 210. Potassium 4.7, BUN 64, creatinine 2.01. Albumin 3.1. Urinalysis with no white blood cells. IMPRESSION AND PLAN: 1. Failure to thrive. 2. Failure to perform ADLs. 3. Significant neuromuscular weakness. 4. Constipation. 5. Weight loss. 6. Hypertension. 7. Diabetes. 8. Historical diagnosis of neuropathy. 9. Reported chronic obstructive pulmonary disease. 10. Obstructive sleep apnea, off CPAP. 11. Smoking of 15 pack-year history, quit long ago. 12. Gout. 13. Elevated creatinine, unclear baseline. Induce bowel movement. Check ultrasound of the abdomen. Give some IV fluid as a trial to check the creatinine response. Neurology consult to evaluate the neuromuscular disorder and consider rehab evaluation thereafter. The patient will likely need some short-term placement knowing that there is a chance he may need longer-term placement. We will follow along closely. Vitamins recommended. Thank you very much, Dr. Del Angel. Please call for questions. MD GENA Colon/MODL /[phone]
--- NOTE | 2019-12-10 06:59 | NUR ---
BS report with morning nurse. Pt resting in bed, no acute distress noted.
[2019-12-10] MEDS: INSULIN REGULAR, HUMAN 100 UNIT/1 ML 3ML VIAL SQ SCH ×4 (07:30→20:35)
[2019-12-10] MEDS ORDERED: CARVEDILOL 3.125 MG TAB PO SCH (09:00)
[2019-12-10] MEDS: MULTIVITAMINS/MINERALS TAB PO SCH (09:04)
[2019-12-10] MEDS: ALLOPURINOL 100 MG TAB PO SCH (09:04)
[2019-12-10] MEDS: POLYETHYLENE GLYCOL 3350 17 GM PACK PO SCH (09:04)
[2019-12-10] MEDS: SPIRONOLACTONE 25 MG TAB PO SCH (09:05)
[2019-12-10] MEDS: DOCUSATE SODIUM 100 MG CAP PO SCH ×2 (09:05→16:59)
[2019-12-10] MEDS: METFORMIN HCL 500 MG TAB CR PO SCH (09:05)
[2019-12-10] MEDS: FUROSEMIDE 40 MG TAB PO SCH ×2 (09:05→16:59)
--- NOTE | 2019-12-10 14:07 | NUR ---
Patient off the unit for MRI, Stable, family at bed side
[2019-12-10] MEDS: CARVEDILOL 3.125 MG TAB PO SCH (16:59)
--- NOTE | 2019-12-10 19:00 | NUR ---
Completed shift report completed with morning nurse. Pt alert to name, lying in bed HOB 30 degrees. Denies pain at this time. Call light within reach. Will continue to monitor.
--- NOTE | 2019-12-10 20:12 | NUR ---
MEDICINE ATTENDING PRIMARY CARE DOCTOR[facility] Coverage for Dr Costa DATE: 12/10/19 SUBJECTIVE: RA fio2 ao x 3 (+) BM yesterday, moderate voiding couldnt finish MRI due to coughing SOB REVIEW OF SYSTEMS: No polydipsia. No seizures. OBJECTIVE: VITAL SIGNS: vital signs noted and reviewed per the chart record. GENERAL: no acute distress, alert and calm. HEENT: Normocephalic and atraumatic. NECK: Supple. Throat midline. LUNGS: Bilateral air entry clear. CARDIOVASCULAR: S1 and S2. No murmurs, rubs, or gallops. ABDOMEN: Soft, not tight, not surgical. EXTREMITIES: No clubbing. No cyanosis. 1+ edema legs. INTEGUMENT: No rash. No purpura. LABORATORY DATA: no new updates IMPRESSION AND PLAN: 1. Failure to thrive. 2. Failure to perform ADLs. 3. Significant neuromuscular weakness. 4. Constipation. 5. Weight loss. 6. Hypertension. 7. Diabetes. 8. Historical diagnosis of neuropathy. 9. Reported chronic obstructive pulmonary disease. 10. Obstructive sleep apnea, off CPAP. 11. Smoking of 15 pack-year history, quit long ago. 12. Gout. 13. Elevated creatinine, unclear baseline. More bowel movements, better Check ultrasound of the abdomen. Consider IVF for renal / creatinine response. Neurology consult appreciated --follow up multiple MRIs to evaluate the neuromuscular disorder PT/Ot evaluation Short-term placement and therapy, consider longer-term placement. We will follow along closely. Vitamins recommended. Thank you very much, Dr. Del Angel. Please call for questions.
[2019-12-10] MEDS ORDERED: LACTULOSE SYRUP 20 GM/30 ML UDC PO PRN (20:15)
[2019-12-10] MEDS: TAMSULOSIN HCL 0.4 MG CAP PO SCH (20:35)
--- NOTE | 2019-12-10 22:51 | Diagnostic Imaging Report ---
History: Constipation Comparison studies: None Technique: Sagittal T1, T2 and IR, axial T2 and axial gradient echo Intravenous contrast: None Findings: Alignment: 3 mm retrolisthesis of C3 on C4. 3 mm anterolisthesis of C7 on T1. Normal lordosis. No scoliosis. Cervicomedullary junction: No abnormalities. Patent foramen magnum. Soft tissues: No T2 hyperintense inflammatory changes. Spinal cord: Normal in size and signal from the foramen magnum through T1. Vertebrae: Normal in height and signal intensity. No fractures, infection or neoplasm. Degenerative changes: C2-C3: Age-related loss of disc space signal. Patent spinal canal and foramina. No disc herniation C3-C4: Severely degenerated disc. Moderate bilateral foraminal stenosis due to facet and uncoarthrosis. Mild spinal canal stenosis due to a disc osteophyte complex No disc herniation. C4-C5: Severely degenerated disc. Moderate bilateral foraminal stenosis due to facet and uncovertebral arthrosis. Moderate spinal stenosis due to disc osteophyte complex. No disc herniation. C5-C6: Moderately degenerated disc. Patent spinal canal and foramina. No disc herniation. C6-C7: Moderately degenerated disc. Mild bilateral foraminal stenosis due to facet and uncovertebral arthrosis. Patent spinal canal. No disc herniation C7-T1: Moderately degenerated disc. Mild bilateral foraminal stenosis due to facet and uncovertebral arthrosis. The foramina are elongated due to the 3 mm anterolisthesis of C7 on T1. Patent spinal canal. No disc herniation IMPRESSION: 1. 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 2. Degenerative spinal canal stenosis is mild at C3-4, moderate at C4-5. Superimposed foraminal stenosis there is moderate bilaterally at both levels 3. No disc herniations. Signed by: Dr. Adam Archibald M.D. on 12/10/2019 10:48 PM
[2019-12-11] VITALS (8 sets, daily range): BP systolic 97–151; BP diastolic 62–75
--- NOTE | 2019-12-11 00:47 | Consultation ---
DATE OF CONSULTATION: 12/10/2019 HISTORY OF PRESENT ILLNESS: A 79-year-old male, history of abdominal pain, multiple medical problems, who was admitted with increased weakness per and the patient had seen one neurologist previously at [facility], does not know what kind of diagnosis was given. He also has seen a depilatory painter who gave him an EMG and nerve conduction study and told him he might have neuropathy. He has been having a continuous decline in his mobility for the last at least one year. Things got worse during the last few weeks. Per the , he is weaker on the right side than the left for at least one year. He has more pain on the right than the left, although he has pain all over. He has some tremors in his right arm and he has difficulty initiating movements. He tends to fall backward or to the right side. He has atrophy per . What is significant is that around 3-4 weeks ago, he started having issues with urinary incontinence, unable to feel him having urinary urgency, which also he started having no bowel movements and continence. The changes in bowel movement habits happened as mentioned around 6 weeks ago. He is becoming weaker and weaker. No recent history of trauma. He is on the overweight side, although he has lost some weight recently. He has a history of diabetes as well as other medical problems. No recent history of head trauma. PAST MEDICAL HISTORY: Hypertension, diabetes, sleep apnea obviously, gout, COPD. MEDICATIONS: The patient's medications are per records. ALLERGIES: INCLUDE LISINOPRIL, . SOCIAL HISTORY: Smoker for 15 years, one pack per day. No alcohol or drug abuse. He used to be an electrical electronics engineer, retired. His is a nurse. FAMILY HISTORY: Noncontributory. REVIEW OF SYSTEMS: Complete including general, HEENT, endocrine, pulmonary, cardiac, , GI, integument, musculoskeletal, neurologic is negative other than what was mentioned above. PHYSICAL EXAMINATION: VITAL SIGNS: Temperature 98, respiratory rate 16, pulse rate 80, blood pressure 121/60. HEENT: No meningeal signs. LUNGS: Fair air entry. ABDOMEN: Soft. EXTREMITIES: Pulses present. NEUROLOGIC: The patient is alert, follows commands. Speech is slow, but he answers. There is no language dysfunction otherwise. He has some good memory and executive function. Decreased facial features and facial masking are noted. Bradykinesia is very significant. He had mild pill-rolling tremor in the right hand with some cogwheel rigidity noted in the right side more than the left. He is weaker on the right than the left, almost right hemiparesis. Deep tendon reflexes are 1 on the right, trace on the left. Planters were equivocal. No sensory deficit was detected. Proprioception is normal. Gait was not tested today. Motor as mentioned, he is weaker on the right side. LABORATORY DATA: ASSESSMENT: The patient's symptoms are multifactorial. He has an ongoing neurodegenerative disease with parkinsonism that is obvious and possibly superimposed neuropathy. What is significant is the newly noticed colonic dysfunction and bowel and bladder dysfunction and incontinence, which raises the possibility of a cord lesion. For that reason, we will obtain MRI of the spinal cord to evaluate for any lesion noted and shed some light about his symptoms. His right hemiparesis can be related to an old stroke he might have had at the time that he presented to [facility] in [place] previously 1 year ago. For that reason, we will also obtain an MRI of the brain to document that. While he has symptoms of neuropathy and signs of neuropathy by examination, it is not the main etiology for his weakness. Obviously, considering that he is on statins, I cannot rule out a possibility of myopathy that might be adding to the symptoms. Recommend as above. Imaging will be done of the brain and the spine and based on that, we will make further decisions. Imaging was ordered on a stat basis. We will also check a CK level as well as vitamin B12, TSH, RPR, and vitamin D level. He will also send blood for serum protein electrophoresis and immunofixation electrophoresis. The possibility of a paraneoplastic process definitely cannot be ruled out. As far as his parkinsonism, we would consider starting him on Sinemet and monitor his response. He will definitely need physical/occupational therapy and he definitely needs to have the patient to get him back on his feet. Based on the results of the above imaging, we will decide about further workup. Total face to face time spent today on this critically ill patient with weakness was 70 minutes with more than half the time spent counselling and coordination of care including discussions with family, patient, referring physician, staff and consultants. Ali MD KRUPA Genao/KYLIE /[id number] MTDKeven
[2019-12-11] MEDS: ACETAMINOPHEN 325 MG TAB PO SCH ×4 (05:56→18:02)
[2019-12-11 06:18] LABS: ALBUMIN 2.9 g/dL (3.5-5.0); ALBUMIN/GLOBULIN RATIO 1.2 (0.8-2.0); ANION GAP 11.4 mmol/L (8-16); CALCIUM 8.7 mg/dL (8.4-10.2); CREATININE, SERUM 1.68 mg/dL (0.72-1.25); POTASSIUM 4.4 mmol/L (3.5-5.1)
--- NOTE | 2019-12-11 07:00 | NUR ---
BS shift report with morning nurse. Pt awake in bed, no acute distress noted.
[2019-12-11] MEDS: INSULIN REGULAR, HUMAN 100 UNIT/1 ML 3ML VIAL SQ SCH ×4 (07:30→21:00)
--- NOTE | 2019-12-11 08:12 | Diagnostic Imaging Report ---
Ultrasound of the Kidneys, 12/10/2019. Clinical History: Elevated creatinine. Discussion: Sonographic evaluation of the kidneys is performed. Right kidney: 11.2 cm in length, normal in size, with cortical thickness of 2.0 cm. Normal cortical echogenicity. 2 right renal cysts are identified measuring 8.2 x7.6 x 7.6 cm and 3.9 x 3.6 x 4.0 cm. No shadowing calculus. No hydronephrosis. Left kidney: 11.8 cm in length, normal in size, with cortical thickness of 4.9 cm. Normal cortical echogenicity. Multiple renal cysts are identified the largest of which measures 2.6 x 2.0 x 2.0 cm. No shadowing calculus. No hydronephrosis. Limited Doppler evaluation demonstrates normal color Doppler flow within bilateral renal roma. Fluid: No perinephric fluid. Bladder: The bladder is not visualized, likely secondary to patient's body habitus IMPRESSION: Bilateral renal cysts. No evidence of hydronephrosis bilaterally. Signed by: Dawit Peter MD on 12/11/2019 8:09 AM
[2019-12-11] MEDS: DOCUSATE SODIUM 100 MG CAP PO SCH ×2 (08:50→18:01)
[2019-12-11] MEDS: SPIRONOLACTONE 25 MG TAB PO SCH (08:50)
[2019-12-11] MEDS: FUROSEMIDE 40 MG TAB PO SCH ×2 (08:51→17:00)
[2019-12-11] MEDS: POLYETHYLENE GLYCOL 3350 17 GM PACK PO SCH (08:51)
[2019-12-11] MEDS: ALLOPURINOL 100 MG TAB PO SCH (08:51)
[2019-12-11] MEDS: METFORMIN HCL 500 MG TAB CR PO SCH (08:51)
[2019-12-11] MEDS: MULTIVITAMINS/MINERALS TAB PO SCH (08:51)
[2019-12-11] MEDS: CARVEDILOL 3.125 MG TAB PO SCH ×2 (08:51→18:01)
--- NOTE | 2019-12-11 09:32 | NUR ---
Patient resting in bed, Alert with no distress, tolerated breakfast. PRN laxative given
--- NOTE | 2019-12-11 11:37 | NUR ---
SPOKE WITH PT, AND GRANDDAUGHTER IN ROOM THEY WILL GO [facility], WILL CALL AND LET KNOW CHOICE.
--- NOTE | 2019-12-11 12:03 | NUR ---
MEDICINE ATTENDING PRIMARY C[facility] DO[facility] Coverage for Dr Costa DATE: 12/11/19 SUBJECTIVE: RA fio2 AOX 3 appreciate neurologic evaluation d/w at bedside MRIs pending REVIEW OF SYSTEMS: No polydipsia. No seizures. OBJECTIVE: VITAL SIGNS: vital signs noted and reviewed per the chart record. GENERAL: no acute distress, alert and calm. HEENT: Normocephalic and atraumatic. NECK: Supple. Throat midline. LUNGS: Bilateral air entry clear. CARDIOVASCULAR: S1 and S2. No murmurs, rubs, or gallops. ABDOMEN: Soft, not tight, not surgical. EXTREMITIES: No clubbing. No cyanosis. 1+ edema legs. INTEGUMENT: No rash. No purpura. LABORATORY DATA: no new updates IMPRESSION AND PLAN: 1. Failure to thrive. 2. Failure to perform ADLs. 3. Significant neuromuscular weakness. Possible parkinsons +/- other degenerative process. 4. Constipation. 5. Weight loss. 6. Hypertension. 7. Diabetes. 8. Historical diagnosis of neuropathy. 9. Reported chronic obstructive pulmonary disease. 10. Obstructive sleep apnea, off CPAP. 11. Smoking of 15 pack-year history, quit long ago. 12. Gout. 13. Elevated creatinine, unclear baseline. More bowel movements, better ultrasound of the abdomen - no hydronephrosis Intermittent follow for renal / creatinine response. Neurology consult appreciated --follow up multiple MRIs to evaluate the neuromuscular disorder PT/OT evaluation Short-term placement and therapy, CM consult We will follow along closely. Vitamins Thank you very much, Dr. Del Angel. Please call for questions.
--- NOTE | 2019-12-11 13:00 | Diagnostic Imaging Report ---
Exam: MRI thoracic spine without contrast History: 79-year-old male with pain and weakness Comparison studies: None Technique: Sagittal T1, T2 and STIR without contrast; axial and coronal T2. Findings: Curvature: Mild increased thoracic kyphosis. Mild levoconvex curvature centered at T7-T8. Minimal retrolisthesis at T12-L1. Paraspinal soft tissues: T2 hyperintense probable cyst in both kidneys are partially visualized.. Spinal cord: Normal in size and signal intensity through the tip of the conus at T12-L1 . Vertebrae: -Minimal chronic anterior wedging of the T7, T8, T9 and T10 vertebral bodies. Otherwise normal in height. -Multilevel bulky anterior bony bridging osteophytes from T7 to T11 (consistent with DISH). -Benign hemangioma in the right posterior aspect of the T10 vertebral body. -No recent fractures, infection or neoplasm. Disk spaces: -Loss of normal T2 disc signal throughout the thoracic spine with disc height loss at multiple levels including T7-T8, T9-T10, T10-T11 and T12-L1. -Degenerative endplate changes throughout the mid and lower thoracic spine most prominent at T7-T8, T9-T10 and T12-L1 where there is nonspecific disc T2 hyperintensity, endplate degenerative subchondral bone marrow edema (Modic Type 1 endplate changes) and underlying Schmorl nodes. Disk herniations: None. Foramina: Mild foraminal stenosis at multiple levels secondary to facet arthropathy without significant foraminal stenosis. Spinal canal: Mild canal stenosis at T7-T8 secondary to severely degenerated disc with posterior disc osteophyte complex. Mild canal stenosis at T10-T11 secondary to moderately degenerated disc with associated disc bulge. IMPRESSION: 1. No spinal cord abnormalities. 2. Multilevel degenerative spondylosis throughout the thoracic spine, more prominent from T7 through T12 with Modic type I endplate changes as detailed above. 3. No significant canal or foraminal stenosis. Signed by: Dr. Ayah Buenrostro M.D. on 12/11/2019 1:53 PM
--- NOTE | 2019-12-11 14:21 | NUR ---
CALLED AND CHOSE [facility], COMPLETED PAS[facility], RTF AND FAXED CLINICALS TO FACILITY
--- NOTE | 2019-12-11 16:19 | Diagnostic Imaging Report ---
Exam: MR lumbar spine without contrast History: 79-year-old male with Pain and weakness Comparison studies: Abdomen pelvis CT without contrast 12/09/2019 Technique: Sagittal T1, T2 and IR, axial T2 with and without fat sat and axial spin density oblique Intravenous contrast: None Findings: Number of lumbar vertebral bodies: 5. S1 appears lumbarized. The vertebral bodies are numbered accordingly. Soft tissues: Bilateral T2 hyperintense renal cysts are partially imaged, including a large cyst on the right . Paraspinal muscles: Periarticular edema within the muscles at the bilateral L4-L5 facets. There is mild atrophy at the sacrum. Lower thoracic cord: Normal in size and signal. The tip of the conus is at L1-L2. Cauda equina:No masses. No arachnoiditis . Vertebrae: Normal in height. Endplate bone marrow edema at T10-T11 and L1-L2 with mixed Modic type I and II endplate changes. Mild chronic anterior wedging at the T11 vertebral body. T2 hyperintense focus within the right posterior aspect of the T11 vertebral body likely represents an atypical hemangioma. Otherwise, no acute fractures, infection or neoplasm. Degenerative changes: Moderate disc height loss at T10-T11, T11-T12 and L1-L2 with suspected annular fissures. L1-L2 Moderately degenerated disc with asymmetric right disc bulge results in mild canal stenosis. Moderate right and mild left foraminal stenosis secondary to degenerative disc changes and facet arthropathy. Small bilateral facet effusions. L2-L3: Mildly degenerated disc with symmetric disc bulge. No canal stenosis. Moderate left and mild right foraminal stenosis secondary to degenerative disc changes and facet arthrosis. Small bilateral facet effusions. L3-L4: Mildly degenerated disc with symmetric disc bulge. No canal stenosis. Mild left foraminal stenosis secondary to degenerative disc changes and bilateral facet arthrosis with patent right foramen. Small bilateral facet effusions. L4-L5: Mildly degenerated disc with symmetric disc bulge and ligamentum flavum thickening results in mild to moderate canal stenosis. Moderate to severe right and mild left foraminal stenosis secondary to degenerative disc changes and facet arthrosis. Small bilateral facet effusions, left greater than right. L5-S1: Laminectomy changes. Grade 1 anterolisthesis of L5 on S1 due to severe bilateral facet arthrosis. Mildly degenerated disc with symmetric disc bulge. No canal stenosis. Mild right and mild to moderate left foraminal stenosis secondary to degenerative disc changes and facet arthrosis. Partially visualized sacrum: No marrow signal abnormalities. T2 hyperintense perineural cysts are present within the bilateral S2 neural foramen. IMPRESSION: 1. No acute abnormality. 2. Multilevel degenerative disc changes, severe at L1-L2 and T10-T11. 3. Laminectomy changes at L5-S1. 4. Mild to moderate degenerative canal stenosis at L4-L5. 5. Multilevel bilateral foraminal stenoses - moderate to severe on the right at L4-L5. 6. Possible mild bilateral facet synovitis at L4-L5. This preliminary report was issued by Dr. Curry Slaughter M.D. neuroradiology fellow at 1616 hours on 12/11/2019. Signed by: Dr. Zain Goodwin M.D. on 12/11/2019 4:50 PM
--- NOTE | 2019-12-11 16:37 | Diagnostic Imaging Report ---
Exam: Brain MRI without contrast History: 79-year-old male who presents with weakness Comparison studies: None Technique: Sagittal T2; axial DWI and ADC, axial T2 FLAIR, axial GRE, axial T1, Coronal T2 FLAIR. Intravenous contrast: None Findings: Scalp: Normal in signal . No masses . Bone marrow: Normal in signal intensity. Extra-axial: No masses or fluid collections. Brain sulci: Moderately prominent.. Ventricles: Moderate compensatory dilatation . No hydrocephalus . Parenchyma: Diffuse confluent T2 hyperintense foci in the supratentorial white matter and brainstem are consistent with chronic microvascular ischemic changes. T1 hypointense, T2 hyperintense lesions in the villanueva radiata, right posterior putamen, right mid putamen and left globus pallidus represent chronic lacunar infarcts. No masses, hemorrhage, acute or chronic cortical ischemic insults. Suprasellar region: No abnormalities. Craniocervical junction: No abnormalities. Patent foramen magnum. No Chiari one malformation. Vessels: Normal flow-voids in the arteries and sinuses. IMPRESSION: No acute intracranial abnormalities. Chronic findings: 1. Severe chronic microvascular ischemic changes. 2. Multiple chronic lacunar infarcts as described above. 3. Moderate generalized volume loss. This preliminary report was issued by Dr. Curry Slaughter M.D. neuroradiology fellow at 1637 hours on 12/11/2019. Signed by: Dr. Ayah Buenrostro M.D. on 12/11/2019 4:39 PM
--- NOTE | 2019-12-11 19:40 | NUR ---
RECEIVED PT IN BED AOX3 RESPIRATIONS ARE EVEN AND UNLABORED /DENIES PAIN .CALL LIGHT WITH IN REACH .CONTINUE TO MONITOR
[2019-12-11] MEDS: TAMSULOSIN HCL 0.4 MG CAP PO SCH (20:48)
--- NOTE | 2019-12-11 22:36 | Progress Note ---
DATE: 12/11/2019 SUBJECTIVE: MRI brain and spine reviewed. The patient is same. Normal changes. MEDICATIONS: Per medication list. OBJECTIVE: Please refer to the exam from yesterday, it is unchanged with facial masking and right more than left side weakness, and mild pill-rolling tremor. ASSESSMENT AND PLAN: Multifactorial etiology for his weakness. Based on the MRI results, we will check a carotid Doppler adjusting case and we will continue with statins as well as antiplatelets. Control cardiovascular risk factors because of the multiple lacunar strokes. Stools are usually due to small vessel disease. I do not think they would be related to any large vessel disease. As far as his spinal spondylosis, it is multilevel, although it is significant in certain areas considering his overall condition. He is probably not a candidate for any surgical intervention, so we will suggest conservative treatment with physical and occupational therapy and traction. As far as his parkinsonism, he probably will benefit from starting him on Sinemet. We will do that and follow up on the response. The patient is anyway due to be followed by his neurologist with [facility]. Total face to face time spent today on this critically ill patient with weakness was 66 minutes with more than half the time spent counselling and coordination of care including discussions with family, patient, referring physician, staff and consultants. Dasha Genao MD AM/KYLIE /[id number] MTDKeven
[2019-12-12] VITALS (8 sets, daily range): BP systolic 117–138; BP diastolic 55–82
[2019-12-12] MEDS: ACETAMINOPHEN 325 MG TAB PO SCH ×4 (05:49→16:23)
--- NOTE | 2019-12-12 06:06 | NUR ---
PT RESTED DURING THE NIGHT .PT IS NOT SURE ABOUT THE CARDIAC NANCY TODAY .CALL LIGHT WITH IN REACH .CONTINUE TO MONITOR Addendum: 12/12/19 at 0608 by Nelson Watson RN WRONG PT
--- NOTE | 2019-12-12 06:08 | NUR ---
PT RESTED DURING THE NIGHT .NO ACUTE DISTRESS NOTED .CALL LIGHT WITH IN REACH .CONTINUE TO MONITOR
--- NOTE | 2019-12-12 07:07 | NUR ---
BEDSIDE REPORT GIVEN TO THE ONCOMING NURSE
[2019-12-12] MEDS: INSULIN REGULAR, HUMAN 100 UNIT/1 ML 3ML VIAL SQ SCH ×4 (07:30→21:00)
--- NOTE | 2019-12-12 08:06 | NUR ---
WOUND CARE CONSULT FOR 79 YO MALE HX OFabd pain,constipation,renal insuff EVELIN 13 ON MODERATE PUP STATUS AND INTERVENTIONS AND ALTERNATING PRESSURE MATTRESS LABS: WBC-6.96 HGB_ 12 GLUCOSE- 95 SKIN ASSESSMENT COMPLETE PATIENT PRESENTS WITH STAGE 2 PRESSURE ULCER LEFT BUTTOCKS 2CM X2CMX .1CM RECOMMENDATIONS: NURSING TO CONTINUE TO MAINTAIN MODERATE PUP STATUS AND INTERVENTIONS AND _ALTERNATING MATTRESS NURSING TO CONTINUE TO ASSIST PATIENT OUT OF BED FOR MEALS AND MUCH TOLERATED NURSING TO CONTINUE TO ASSIST PATIENT NEEDED WITH MEALS AND NUTRITIONAL SUPPLEMENTS TO ENSURE PROPER REQUIREMENTS FOR HEALING NURSING TO CONTINUE TO OFFLOAD FEET AND HEELS NEEDED WITH PILLOW SUSPENSION WHEN IN BED NURSING TO CLEANLEFT BUTTOCKS STAGE 2 ULCERATION WITH NORMAL SALINE DAILY AND APPLY VENELEX OINTMENT AND ALLEVYN FOAM DRESSING Addendum: 12/12/19 at 0812 by Landry Bautista RN Amended: Links added.
[2019-12-12] MEDS: CARVEDILOL 3.125 MG TAB PO SCH ×2 (08:53→16:24)
[2019-12-12] MEDS: SPIRONOLACTONE 25 MG TAB PO SCH (08:53)
[2019-12-12] MEDS: DOCUSATE SODIUM 100 MG CAP PO SCH ×2 (08:53→16:23)
[2019-12-12] MEDS: MULTIVITAMINS/MINERALS TAB PO SCH (08:54)
[2019-12-12] MEDS: BALSAM PERU/CASTOR OIL 60 GM OINT...G. TP SCH (08:54)
[2019-12-12] MEDS: ALLOPURINOL 100 MG TAB PO SCH (08:54)
[2019-12-12] MEDS: POLYETHYLENE GLYCOL 3350 17 GM PACK PO SCH (08:54)
[2019-12-12] MEDS: FUROSEMIDE 40 MG TAB PO SCH (08:54)
[2019-12-12] MEDS: METFORMIN HCL 500 MG TAB CR PO SCH (08:54)
[2019-12-12] MEDS: CARBIDOPA/LEVODOPA 25/100 TAB PO SCH ×2 (16:23→20:44)
--- NOTE | 2019-12-12 19:55 | NUR ---
RECEIVED PT IN BED AOX3 DENIES PAIN .CALL LIGHT WITH IN REACH .CONTINUE TO MONITOR
[2019-12-12] MEDS: TAMSULOSIN HCL 0.4 MG CAP PO SCH (20:44)
--- NOTE | 2019-12-12 21:23 | Progress Note ---
DATE: 12/12/2019 PILE DRIVING SETTER: Dr. Genao with Neurology. CHIEF COMPLAINT: Generalized weakness and debility. SUBJECTIVE: The patient is resting in bed with family at bedside. He denies any chest pain, shortness of breath, abdominal pain, nausea, or vomiting. Reports has been moving his bowels, tolerating p.o. MRI and echo has been done. Renal ultrasound shows bilateral renal cysts. He was able to take four steps with physical therapy and no further complaints. OBJECTIVE: VITAL SIGNS: Temperature 97.6, pulse is 51, respirations 20, blood pressure 132/63, and pulse ox is 98% on room air. GENERAL: Generalized weakness. HEENT: Normocephalic and atraumatic. NECK: Supple. CARDIOVASCULAR: Regular rate and rhythm. LUNGS: Clear to auscultation. ABDOMEN: Soft and nontender. NEUROLOGIC: Alert, awake, and oriented x2-3. MUSCULOSKELETAL: Moves all extremities, but generalized weakness. SKIN: Dry. LABORATORY DATA: ESR 31. Blood sugar well controlled. CRP pending. Sodium 135 and creatinine 1.68. IMAGING DATA: MRI of brain shows no acute intracranial abnormalities, shows chronic microvascular ischemic changes, multiple chronic lacunar infarcts as described above, and generalized volume loss. IMPRESSION: 1. Increasing debility. MRI shows no acute process, but shows chronic multiple lacunar infarct. Neurology has been consulted. PT has been consulted. Recommends care home facility. 2. Acute kidney injury. Creatinine is improving, currently 1.68. 3. Abdominal pain due to constipation. Resolved. 4. Hypertension. Resume home medication. 5. Diabetes. Sliding scale insulin. 6. History of chronic obstructive pulmonary disease. Not on exacerbation. Nebulizers p.r.n. 7. Obstructive sleep apnea. Off CPAP. 8. History of gout. No flare noted. 9. Questionable Parkinson's disease. He was started on carbidopa per Neurology. 10. Deep vein thrombosis prophylaxis. On Lovenox. PLAN: To continue current treatment, case management has been consulted for care home facility evaluation and placement. We will repeat labs in a.m. Dictated by ANTHONY Arango Iwonaching Lucien Costa MD MY/MODL /[id number]
--- NOTE | 2019-12-12 22:08 | Progress Note ---
DATE: 12/12/2019 SUBJECTIVE: The patient is fine. No new changes. Discussed with the and nursing staff and primary service. PHYSICAL EXAMINATION: VITAL SIGNS: Afebrile. Vital signs stable. NEUROLOGIC: Examination is unchanged with the same description as yesterday. ASSESSMENT: 1. Parkinsonism. 2. Neuropathy. 3. Multilevel spinal degenerative spondylosis high risk for any surgical intervention needs conservative treatment for now. Questionable for osteomyelitis or inflammation noted in the lumbar area. I will check his ESR and CRP. We will defer any antibiotic treatment to the primary service. The patient is pending transfer to a nursing facility. Total face to face time spent today on this critically ill patient with weakness was 66 minutes with more than half the time spent counselling and coordination of care including discussions with family, patient, referring physician, staff and consultants. Dasha Genao MD AM/KYLIE /[id number] MTDKeven
[2019-12-13] VITALS: BP 129/60
[2019-12-13 04:00] VITALS: BP 124/67
--- NOTE | 2019-12-13 05:40 | NUR ---
PT SLEPT DURING THE NIGHT .NO ACUTE DISTRESS NOTED .CALL LIGHT WITH IN REACH .CONTINUE TO MONITOR
[2019-12-13 05:55] LABS: BASOPHILS % 0.3 % (0.0-1.0); EOSINOPHILS # (AUTO) 0.3 (0.0-0.4); EOSINOPHILS % 3.8 % (0.0-6.0); HEMATOCRIT 32.6 % (38.2-49.6); HEMOGLOBIN 11.1 g/dL (14.0-18.0); LYMPHOCYTES # (AUTO) 1.5 (1.0-3.2); LYMPHOCYTES % 23.2 % (18.0-39.1); MEAN CORPUSCULAR HEMOGLOBIN 32.5 pg (28-32); MEAN CORPUSCULAR VOLUME 95.3 fL (81-99); MONOCYTES # (AUTO) 0.5 (0.2-0.8); MONOCYTES % 8.2 % (4.4-11.3); NEUTROPHILS # (AUTO) 4.2 (2.1-6.9); NEUTROPHILS % 64.2 % (38.7-80.0); PLATELET COUNT 204 x10e3/uL (140-360); RED BLOOD COUNT 3.42 x10e6/uL (4.3-5.7)
[2019-12-13 06:25] LABS: ANION GAP 12.3 mmol/L (8-16); CALCIUM 8.7 mg/dL (8.4-10.2); CREATININE, SERUM 1.44 mg/dL (0.72-1.25); POTASSIUM 4.3 mmol/L (3.5-5.1)
[2019-12-13] MEDS: ACETAMINOPHEN 325 MG TAB PO SCH ×4 (06:38→16:34)
--- NOTE | 2019-12-13 07:04 | NUR ---
BEDSIDE REPORT GIVEN TO THE ONCOMING NURSE
[2019-12-13] MEDS: INSULIN REGULAR, HUMAN 100 UNIT/1 ML 3ML VIAL SQ SCH ×3 (07:30→16:30)
[2019-12-13 07:47] VITALS: BP 112/60
[2019-12-13 07:51] VITALS: BP 112/60
[2019-12-13] MEDS: DOCUSATE SODIUM 100 MG CAP PO SCH ×2 (08:48→16:34)
[2019-12-13] MEDS: MULTIVITAMINS/MINERALS TAB PO SCH (08:48)
[2019-12-13] MEDS: FUROSEMIDE 40 MG TAB PO SCH (08:48)
[2019-12-13] MEDS: METFORMIN HCL 500 MG TAB CR PO SCH (08:48)
[2019-12-13] MEDS: SPIRONOLACTONE 25 MG TAB PO SCH (08:48)
[2019-12-13] MEDS: CARVEDILOL 3.125 MG TAB PO SCH ×2 (08:49→16:34)
[2019-12-13] MEDS: POLYETHYLENE GLYCOL 3350 17 GM PACK PO SCH (08:49)
[2019-12-13] MEDS: CARBIDOPA/LEVODOPA 25/100 TAB PO SCH ×2 (08:49→16:33)
[2019-12-13] MEDS: ALLOPURINOL 100 MG TAB PO SCH (08:49)
[2019-12-13] MEDS: BALSAM PERU/CASTOR OIL 60 GM OINT...G. TP SCH (08:49)
--- NOTE | 2019-12-13 10:36 | NUR ---
PRISON FACILITY DISCHARGE INFORMATION PATIENT HAS BEEN ACCEPTED TO: NAME:[facility] ADDRESS: [id number] ACCEPTING EYE SPECIALIST:BRIAN RODRIGUEZ MD:NITA ROOM:[id number] NURSE CALL REPORT TO: [phone] IMM SIGNED AND OBTAINED (if applicable): IMM THE FOLLOWING DOCUMENTS MUST ACCOMPANY PATIENT FOR TRANSFER: COPIED CHART: PACKET
[2019-12-13 11:21] VITALS: BP 118/60
[2019-12-13] MEDS ORDERED: CARBIDOPA-LEVO1 EAC1 PO (15:04)
[2019-12-13 15:08] VITALS: BP 148/67
[2019-12-13] MEDS ORDERED: ENOXAPARIN SOD INJ 40 MG/0.4 ML SYR SC SCH (17:00)
--- NOTE | 2019-12-14 01:00 | Progress Note ---
DATE: 12/13/2019 The patient is being discharged. His ESR was 31 and as such, the findings on his MRI lumbar spine are questionable. We will defer further treatment for potential osteomyelitis if his symptoms persist to the Primary Service. We will be following him up as an outpatient. Total face to face time spent today on this critically ill patient with weakness was 66 minutes with more than half the time spent counselling and coordination of care including discussions with family, patient, referring physician, staff and consultants. Dasha Genao MD AM/KYLIE /[id number] MTDKeven
--- NOTE | 2019-12-14 14:42 | Discharge Summary ---
PRIMARY CARE PHYSICIAN: Dr. Yi at [facility]. FINAL DIAGNOSES: 1. Increasing debility with neuromuscular dysfunction. 2. Acute kidney injury. 3. Abdominal pain due to constipation. 4. Hypertension. 5. Diabetes. 6. Chronic obstructive pulmonary disease. 7. Sleep apnea. 8. Gout. 9. Questionable Parkinson disease. CONSULTANTS: Dr. Genao with Neurology. PROCEDURES: MRI of the spine and brain. HISTORY: Per HPI. HOSPITAL COURSE: This is a 79-year-old male with past medical history of hypertension, high cholesterol, diabetes, COPD, sleep apnea, and history of gout, presented to the ER with complaints of decreased appetite due to abdominal pain with constipation and debility, unable to do his ADLs. So upon arrival, imaging was done to rule out stroke. MRI was negative for acute process. CT abdomen and pelvis showed no evidence of bowel obstruction or inflammation, it showed mass in the right kidney, which shows simple cyst, and bilateral adrenal hyperplasia, but no other significant findings. Neurology was consulted and lumbar, cervical and thoracic spine MRI was done, shows degenerative changes, but no signs of infection noted. He was started on physical therapy to evaluate and treat. Recommend [facility] facility for further rehabilitation. Neurology has also seen patient and has started him on carbidopa for possible Parkinson's like symptoms, upper extremity tremors. Multilevel spinal degenerative spondylolysis, high risk for any surgical intervention. Needs conservative treatment for now with physical therapy. Vital signs have been stable, his p.o. intake has been improved, was given lactulose for constipation p.r.n. We will discharge to [facility] for further rehabilitation before returning home. PHYSICAL EXAMINATION: VITAL SIGNS: Temperature 96.6, pulse is 54, respirations 18, blood pressure 148/67, pulse ox is 98% on room air. GENERAL: No acute distress. HEENT: Normocephalic, atraumatic. NECK: Supple. CARDIOVASCULAR: Regular rate and rhythm. LUNGS: Clear to auscultation. ABDOMEN: Soft and nontender. NEUROLOGIC: Alert, awake, oriented x2-3. MUSCULOSKELETAL: Moves all extremities, but with generalized weakness. SKIN: Dry. CONDITION AT DISCHARGE: Improved and stable. DISCHARGE MEDICATIONS: See medication reconciliation list. FOLLOWUP: Follow up with PCP, and Neurology in 1 to 2 weeks. TIME SPENT: Total discharge time is 32 minutes. Dictated by Maria Luisa Tellez ANP MD CALLIE Oakes/KYLIE /[id number] cc: Dr. Yi
== END 2019-12-13 19:22 | DRG 57 ==
LOC: ER 12:57 → ERHOLD 16:50 → MED/SURG3 17:38
PROVIDERS: ADMIT Internal Medicine; ATTEND Internal Medicine
DX: G20 Parkinson's disease (principal); N17.9 Acute kidney failure, unspecified; I69.351 Hemiplegia and hemiparesis following cerebral infarction affecting right dominant side; I10 Essential (primary) hypertension; E11.9 Type 2 diabetes mellitus without complications; J44.9 Chronic obstructive pulmonary disease, unspecified; M10.9 Gout, unspecified; E27.8 Other specified disorders of adrenal gland; M19.90 Unspecified osteoarthritis, unspecified site; M47.819 Spondylosis without myelopathy or radiculopathy, site unspecified; N28.1 Cyst of kidney, acquired; K59.00 Constipation, unspecified; G62.9 Polyneuropathy, unspecified; G47.33 Obstructive sleep apnea (adult) (pediatric); L89.322 Pressure ulcer of left buttock, stage 2
CPT/HCPCS: 36415; 70551; 72141; 72146; 72148; 74176; 76770; 80048; 80053; 81001; 82948; 85025; 85651; 86140; 87086; 93880; 97139; 99251; 99285; J1650